=== PATIENT | female | born 1975 | race Caucasian/White ===

== ENCOUNTER 2019-09-24 20:26 | Emergency (ER) | payer MEDICARE, MEDICAID ==
--- NOTE | 2019-09-24 21:16 | ER Document Report ---
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 [place]. Patient primarily wants to have her urine evaluated and materials for ostomy change and possibly care for suprapubic catheter as she does not have any with her here. Denies fever. I have treated and performed a rapid initial assessment of this patient. A comprehensive ED assessment and evaluation of the patient, analysis of test results and completion of medical decision making process will be conducted by additional ED providers. PHYSICAL EXAMINATION: GENERAL: Well-appearing, well-nourished and in no acute distress. Answers questions appropriately. Physical Exam - Vital signs Vitals: Temp Pulse Resp BP Pulse Ox 98.6 F 131 H 20 127/82 H 100 09/24/19 20:44 09/24/19 20:44 09/24/19 20:44 09/24/19 20:44 09/24/19 20:44 Course - Vital Signs Vital signs: Temp Pulse Resp BP Pulse Ox 98.6 F 131 H 20 127/82 H 100 09/24/19 20:44 09/24/19 20:44 09/24/19 20:44 09/24/19 20:44 09/24/19 20:44 Doctor's Discharge - Discharge Referrals: FABIOLA BLANCAS MD [Primary Care Provider] - Follow up as needed
[2019-09-24] MEDS ORDERED: NORMAL SALINE 1000 ML 1,000 ML IV ONE (22:57)
[2019-09-24 23:04] LABS: APPEARANCE,URINE CLOUDY; BILIRUBIN,URINE NEGATIVE (NEGATIVE); COLOR,URINE YELLOW; GLUCOSE, URINE NEGATIVE (NEGATIVE); KETONES,URINE NEGATIVE (NEGATIVE); PROTEIN,URINE 30 mg/dL (NEGATIVE); URINE SPECIFIC GRAVITY 1.016
--- NOTE | 2019-09-24 23:04 | ER Document Report ---
ED General - General Chief Complaint: Urinary Problem Stated Complaint: URINARY ISSUE Time Seen by Provider: 09/24/19 21:10 Primary Care Provider: FABIOLA BLANCAS MD [ACTIVE STAFF] - Follow up as needed - HPI Notes: Patient is a 44-year-old female with a history of T12-L1 spinal cord injury, with resultant paraplegia, followed later by left hip osteo-myelitis status post disarticulation, right [id number] amputation, suprapubic catheter, and ostomy, who presents to the emergency department for evaluation. She has a few separate complaints. First, she states she is concerned she has a urinary tract infection. She states she had pain in the suprapubic region, consistent with her infections in the past. She also states she would like to have some ostomy supplies. She states currently she is using medical tape and rubber gloves to collect waste. Patient also states she is concerned that she may have a bedsore. She states that when she moved, she noticed some green drainage. No karo fevers to her knowledge. She denies any nausea. She puts her pain in her suprapubic region, rates it a 4 out of 5, states is a constant pressure and aching pain. Nothing seems to make it better or worse. - Related Data Allergies/Adverse Reactions: Penicillins Adverse Reaction (Verified 09/24/19 21:19) Home Medications: List reviewed with patient Past Medical History - General Information source: Patient - Social History Smoking Status: Current Every Day Smoker Family History: Reviewed & Not Pertinent Patient has suicidal ideation: No Patient has homicidal ideation: No Past Surgical History: Reports: Hx Colostomy, Hx Orthopedic Surgery - Left hip disarticulation, right AKA, C-spine surgery for osteomyelitis Review of Systems - Review of Systems Constitutional: No symptoms reported EENT: No symptoms reported Cardiovascular: No symptoms reported Respiratory: No symptoms reported Gastrointestinal: See HPI Genitourinary: See HPI Female Genitourinary: No symptoms reported Musculoskeletal: No symptoms reported Skin: No symptoms reported Neurological/Psychological: No symptoms reported Physical Exam - Vital signs Vitals: Temp Pulse Resp BP Pulse Ox 98.6 F 131 H 20 127/82 H 100 09/24/19 20:44 09/24/19 20:44 09/24/19 20:44 09/24/19 20:44 01/01/20 20:44 - Notes Notes: This is a 44-year-old female who appears her stated age in no acute distress. Head is normocephalic and atraumatic, pupils are equal round, reactive to light. Oral mucosa is moist. Heart is tachycardic with normal S1-S2. Lungs reveal occasional scattered rhonchi. Abdomen is soft. She has suprapubic catheter in place. She has medical tape surrounding a latex glove, over ostomy in left abdomen. Stoma is pink. Patient has a right AKA, skin of the stump is intact. Examination of the skin of the buttocks yields a large stage 1 pressure ulcer, with 2 areas of skin breakdown, one approximately 2 x 3 cm, the second 1-1/2 x 2-1/2 cm. No active drainage or tunneling noted. Patient is awake and alert, cooperative with examiner. No gross facial asymmetry. Course - Re-evaluation Re-evalutation: 09/24/19 23:04 Patient presents to the emergency department for evaluation. She is concerned about the possibility of infection. On arrival her heart rate is 130. Based on this information, sepsis work-up is started. IV established, cultures ordered, we will continue to monitor. 09/25/19 01:22 Patient's laboratory investigations revealed no significant abnormality, with the exception of a nitrate positive urine specimen. Despite this, her white blood cell count is normal. Her kidney function is normal. She has a normal lactic acid. She is improved overall, responded well to IV fluids, and heart rate has normalized. She is given a dose of IV Rocephin. She is not vomiting. I do not see any reason that this patient cannot be discharged on oral antibiotics. She is given wound care to her decubitus ulcers. The importance of close follow-up in regards to this was stressed to the patient. She voiced understanding and the patient was discharged. - Vital Signs Vital signs: Temp Pulse Resp BP Pulse Ox 98.6 F 99 20 127/82 H 99 09/24/19 20:44 09/25/19 00:56 09/24/19 20:44 09/24/19 20:44 09/25/19 00:56 - Laboratory Result Diagrams: 09/24/19 23:20 09/24/19 23:20 Laboratory results interpreted by me: 01/01/20 01/01/20 22:39 23:20 Total Protein 8.9 H Urine Protein 30 H Urine Blood SMALL H Urine Nitrite (Reflex) POSITIVE H Urine Urobilinogen 2.0 H Leukocyte Esterase Rfl LARGE H Discharge - Discharge Clinical Impression: Urinary tract infection Qualifiers: Urinary tract infection type: acute cystitis Hematuria presence: without h ematuria Qualified Code(s): N30.00 - Acute cystitis without hematuria Decubitus ulcer limited to breakdown of skin (stage 2) Qualifiers: Pressure injury location: buttock Laterality: right Qualified Code(s): L89.312 - Pressure ulcer of right buttock, stage 2 Condition: Stable Disposition: HOME, SELF-CARE Instructions: Cephalexin ([facility]), Urinary Tract Infection ([facility]), Decubitus Ulcer ([facility]) Additional Instructions: Please take all of the antibiotics as prescribed, starting tomorrow. You have a small amount of skin breakdown on your right buttock. This will need to be addressed as soon as possible with appropriate wound care. Follow-up with your primary care provider soon as possible. If you develop fevers, vomiting, or any other new or concerning symptoms, please return immediately to the emergency department for reevaluation. Referrals: FABIOLA BLANCAS MD [ACTIVE STAFF] - Follow up as needed
[2019-09-24 23:38] LABS: ABSOLUTE EOSINOPHILS # (AUTO) 0.1 10^3/uL (0.0-0.6); ABSOLUTE LYMPHOCYTES (AUTO) 2.7 10^3/uL (0.5-4.7); ABSOLUTE MONOCYTES (AUTO) 0.6 10^3/uL (0.1-1.4); ABSOLUTE NEUT (AUTO) 4.4 10^3/uL (1.7-8.2); BASOPHILS % (AUTO) 0.3 % (0-2); EOSINOPHILS % (AUTO) 1.3 % (0-6); HEMATOCRIT 42.5 % (36.0-47.0); HEMOGLOBIN 14.8 g/dL (12.0-15.5); LYMPHOCYTES % (AUTO) 34.3 % (13-45); MEAN CORPUSCULAR HEMOGLOBIN 29.4 pg (27.0-33.4); MEAN CORPUSCULAR HGB CONC 34.8 g/dL (32.0-36.0); MEAN CORPUSCULAR VOLUME 84 fl (80-97); MONOCYTES % (AUTO) 8.2 % (3-13); PLATELET COUNT 356 10^3/uL (150-450); RED BLOOD COUNT 5.04 10^6/uL (3.72-5.28); SEGMENTED NEUTROPHILS % (AUTO) 55.9 % (42-78); TOTAL CELLS COUNTED % (AUTO) 100 %; WHITE BLOOD COUNT 7.9 10^3/uL (4.0-10.5)
[2019-09-24 23:49] LABS: ALBUMIN 4.3 g/dL (3.5-5.0); ALKALINE PHOSPHATASE 92 U/L (38-126); ANION GAP 12 (5-19); ASPARTATE AMINO TRANSFERASE 19 U/L (14-36); BILIRUBIN,DIRECT 0.3 mg/dL (0.0-0.4); BILIRUBIN,TOTAL 0.8 mg/dL (0.2-1.3); BLOOD UREA NITROGEN 17 mg/dL (7-20); CARBON DIOXIDE 23 mmol/L (22-30); CHLORIDE 107 mmol/L (98-107); GLUCOSE 91 mg/dL (75-110); TOTAL PROTEIN 8.9 g/dL (6.3-8.2)
[2019-09-24 23:57] LABS: VENOUS BLOOD BASE EXCESS -2.2 mmol/L; VENOUS BLOOD HCO3 23.2 mmol/L (20-32); VENOUS BLOOD PCO2 41.9 mmHg (35-63); VENOUS BLOOD PH 7.36 (7.30-7.42)
[2019-09-25 00:07] LABS: PROTHROMBIN TIME 13.2 SEC (11.4-15.4)
[2019-09-25] MEDS ORDERED: CEFTRIAXONE 1 GM/D5W RTU 1 GM/50 ML RTUPB IV ONE (01:30)
[2019-09-25 02:39] VITALS: BP 93/64
--- NOTE | 2019-09-25 07:37 | EKG REPORT ---
SEVERITY:- ABNORMAL ECG - SINUS TACHYCARDIA LEFT ATRIAL ABNORMALITY : Confirmed by: Carter Arauz MD 25-Sep-2019 07:36:10
== END 2019-09-25 03:10 | disposition home or self-care (01) ==
LOC: ER 20:26
DX: N30.00 Acute cystitis without hematuria (principal); L89.312 Pressure ulcer of right buttock, stage 2; R10.2 Pelvic and perineal pain; F17.200 Nicotine dependence, unspecified, uncomplicated; Z87.440 Personal history of urinary (tract) infections; Z88.0 Allergy status to penicillin; Z89.611 Acquired absence of right leg above knee; Z93.3 Colostomy status
CPT/HCPCS: 93005; 99283; 96361; 96365; 36415; 87040; 87086; 83605; 85025; 85610; 87088; 80053; 81001; 87186; 82803; 93010; J7030; J0696